=== PATIENT | male | born 1975 | race Caucasian/White ===

== ENCOUNTER 2017-08-31 20:48 | Emergency (ER) | payer SELFPAY ==
[~2017-08-31] VITALS: Ht 175.3 cm; Wt 63.0 kg
[2017-08-31 21:03] VITALS: BP 145/79; PULSE 91; RESP 16; TEMP 98.6; O2SAT 95
--- NOTE | 2017-08-31 21:37 | PD ---
HPI Chief Complaint: Laceration/Skin Injury Time Seen by Provider: 20:56 Travel History International Travel<30 days: No Contact w/Intl Traveler<30days: No Traveled to known affect area: No History of Present Illness HPI 42-year-old white male presents emergency department in police custody for medical clearance to go to detention. Patient was placed under arrest [place]. He had a open container as well. The patient has struck his head on the cage inside the unit causing a laceration to his right forehead. The patient was brought to the ER for medical clearance before going to detention. The patient here is uncooperative, verbally abusive and threatening to the staff. Patient is using profanity. The patient denies any medical complaints. He states that he is up-to-date with immunizations. He denies any suicidal homicidal ideation. PFSH Past Medical History Medical History: Unable to Obtain Diminished Hearing: No (REFUSED TO ANSWER) Immunizations Current: Yes Tetanus Vaccination: < 5 Years Past Surgical History Surgical History: Unable to Obtain Social History Alcohol Use: Yes (REFUSED TO ANSWER) Tobacco Use: No (REFUSED TO ANSWER) Substance Use: No (REFUSED TO ANSWER) Allergies-Medications (Allergen,Severity, Reaction): Coded Allergies: No Known Allergies (Unverified , 08/31/17) Reported Meds & Prescriptions Reported Meds & Active Scripts Active No Active Prescriptions or Reported Medications Review of Systems ROS Limitations: Uncooperative Physical Exam Narrative GENERAL: Well-nourished, well-developed patient. Patient is using profanity. He is uncooperative. SKIN: Warm and dry. There is a superficial avulsion laceration to the right forehead. This is amenable to Steri-Strips. This measures 2 cm. HEAD: Normocephalic and soft tissue abrasion, contusion to the anterior forehead with superficial avulsion laceration.. EYES: No scleral icterus. No injection or drainage. ENT: No nasal drainage noted. Mucous membranes pink. Airway patent. NECK: Supple, trachea midline. Moves head freely without obvious discomfort. CARDIOVASCULAR: Regular rate and rhythm without murmurs, gallops, or rubs. RESPIRATORY: Breath sounds equal bilaterally. No accessory muscle use. GASTROINTESTINAL: Abdomen soft, non-tender, nondistended. EXTREMITIES: No cyanosis or edema. BACK: Nontender without obvious deformity. No CVA tenderness. NEURO: Patient is alert and oriented. no sensorimotor deficits. Nonfocal. Normal speech. Data Data Last Documented VS Vital Signs Date Time Temp Pulse Resp B/P (MAP) Pulse Ox O2 Delivery O2 Flow Rate FiO2 08/31/17 21:03 98.6 91 16 145/79 (101) 95 Orders Orders Ed Discharge Order (08/31/17 21:31) MDM Medical Decision Making Medical Screen Exam Complete: Yes Emergency Medical Condition: Yes Medical Record Reviewed: Yes Differential Diagnosis MDM: High Differential diagnoses: Fracture, sprain, strain, dislocation, contusion, neurovascular injury Narrative Course The patient's forehead superficial laceration has been cleansed and Steri- Stripped by the nursing staff. The patient's exam reveals no obvious significant injury. The patient is considered medically stable to be discharged to detention. Diagnosis Primary Impression: Forehead contusion Additional Impressions: superficial forehead laceration Medical clearance for incarceration Patient Instructions: General Instructions Additional Instructions: Rest. Head precautions. Tylenol for pain. Steri-Strips ice packs. Avoid alcohol. Avoid all sedating or intoxicating substances. Recheck with your physician within 3-5 days Return to the ER for any problems. Med/Other Pt SpecificInfo: Wound Care Scripts No Active Prescriptions or Reported Meds Disposition: [address] LAW ENFORCEMNT Condition: Stable Larry Tirado Aug 31, 2017 21:37
== END 2017-08-31 22:27 ==
LOC: NEPD 20:48
DX: S01.81XA Laceration without foreign body of other part of head, initial encounter (principal); W22.8XXA Striking against or struck by other objects, initial encounter; Y92.521 Bus station as the place of occurrence of the external cause
CPT/HCPCS: 99283